=== PATIENT | female | born 1970 | race Caucasian/White ===

== ENCOUNTER 2024-10-10 12:27 | Inpatient (IN) | payer OTHER ==
[~2024-10-10] VITALS: Ht 157.5 cm; Wt 79.4 kg
[2024-10-10 12:59] LABS: BASOPHILS ABSOLUTE AUTO 0.06 K/mm3 (0.00-0.23); BASOPHILS PERCENT AUTO 1 % (0-2); EOSINOPHILS ABSOLUTE AUTO 0.24 K/mm3 (0.00-0.68); EOSINOPHILS PERCENT AUTO 4 % (0-6); Hematocrit 40.8 % (33.0-51.0); Hemoglobin 14.4 g/dL (11.5-16.0); IMMATURE GRAN ABSOLUTE AUTO 0.02 K/mm3 (0.00-0.10); IMMATURE GRAN PERCENT AUTO 0 % (0-1); LYMPHOCYTES ABSOLUTE AUTO 2.01 K/mm3 (0.84-5.20); LYMPHOCYTES PERCENT AUTO 30 % (21-46); MONOCYTES ABSOLUTE AUTO 0.52 K/mm3 (0.16-1.47); MONOCYTES PERCENT AUTO 8 % (4-13); Mean Corpuscular HGB 31.9 pg (26.0-34.0); Mean Corpuscular HGB Conc 35.3 g/dL (31.5-36.5); Mean Corpuscular Volume 91 fL (80-100); Mean Platelet Volume 9.1 fL (9.1-12.4); NEUTROPHILS ABSOLUTE AUTO 3.78 K/mm3 (1.96-9.15); NEUTROPHILS PERCENT AUTO 57 % (41-73); Platelet Count 198 K/mm3 (150-400); RDW Coefficient Variation 12.5 % (11.7-14.2); RDW Standard Deviation 41.1 fL (35.1-46.3); Red Blood Cell Count 4.51 M/mm3 (3.80-5.20); White Blood Cell Count 6.63 K/mm3 (4.00-11.30)
[2024-10-10 13:22] LABS: Albumin, Blood 3.9 g/dL (3.4-5.0); Albumin/Globulin Ratio 1.1 (0.8-1.8); Bilirubin, Total 0.4 mg/dL (0.1-1.0); Bun/Creatinine Ratio 15.4 (12.0-20.0); Calcium, Blood 8.8 mg/dL (8.5-10.1); Creatinine, Blood 0.91 mg/dL (0.40-1.00); Globulin, Blood 3.5 g/dL (2.2-4.0); Potassium, Blood 3.6 mmol/L (3.5-5.5); Total Protein, Blood 7.4 g/dL (6.4-8.2)
[2024-10-10] MEDS ORDERED: Aspirin 325 MG Tab PO ONE (15:15)
[2024-10-10 15:36] LABS: Anti-Xa UFH, PHA Monitoring <0.10 IU/mL; International Normalized Ratio 0.94; Prothrombin Time Results 10.1 Sec (9.7-11.5)
[2024-10-10] MEDS ORDERED: Nitroglycerin 0.4 MG SUBL SL PRN (15:50)
[2024-10-10] MEDS ORDERED: Dose Adjust by Pharmacy XX STA (15:55)
[2024-10-10] MEDS ORDERED: Heparin Sodium,Porcine/0.5 NS 500 ML IV SCH (16:00)
[2024-10-10] MEDS ORDERED: Heparin Sodium 5000 Units/ML 1ML MDV IV ONE (16:00)
[2024-10-10] MEDS ORDERED: Atorvastatin 40 MG Tab PO SCH (17:00)
[2024-10-10 17:50] VITALS: BP 135/82
--- NOTE | 2024-10-10 18:45 | NUR ---
EOS/ADMISSION: PATIENT IS A PLEASANT ALERT AND OIRENTED X 4 PATIENT WITH A ADMISSION DIAGNOSIS OF NSTEMI. SHE IS ENDORSING AN IMPROVED LEVEL OF CHEST PAIN FROM 8 TO 4 AFTER ED ADMINISTRATION OF NITRO. NITRO IN PATIENT CUPBOARD. DR. MCGUIRE THE IRRIGATOR SPRINKLING SYSTEM ROUNDED AND PLAN FOR NPO 0000, FOR ANGIO IN THE AM. PATIENT IS CONSENTED FOR PROCEDURE AND BLOOD CONSENT, DAUGHTER AND PRESENT FOR DISCUSSION AND EDUCATION ABOUT PROCEDURE. STILL NEEDS ECHO. ADDED ORDERS FOR A1C, TSH CORONARY RISK PANEL, BY CARDIOLOGY. PATIENT DENIED EXERTION CHEST PAIN TO BE INCREASED, BUT REMAINS TO BE HAVING FREQUENT BELCHING ALL DAY TODAY. PATIENT EDUCATED OF PLAN AND EXPECTATIONS. HEPARIN Gtt INFUSING. AT TIME OF NOTE PATIENT HAD JUST MENTION CHEST PAIN OF NOW 6-7. DENIES NEED FOR NITRO. TROP AT 1857 OF 1273.
[2024-10-10 19:02] VITALS: BP 125/73
--- NOTE | 2024-10-10 19:03 | NUR ---
CHEST PAIN: PAIN INCREASED TO 7-8, NITRO X 1 GIVEN, VSS. NO TELE CHANGES. PLAN OF CARE CONTINUES
[2024-10-10 19:05] VITALS: BP 125/73
[2024-10-10 19:13] VITALS: BP 118/78
[2024-10-10 19:33] VITALS: BP 118/78
[2024-10-10 20:00] LABS: CHOL/HDL RATIO 1.9; Cholesterol 147 mg/dL (50-200); HDL Cholesterol 78 mg/dL (>39); LDL/HDL RATIO 0.7; Low Density Lipoprotein Chol 58 mg/dL (0-110); Triglycerides 54 mg/dL (30-160); Very Low Density Lipoprot Chol 10 mg/dL (6-32)
[2024-10-10 22:59] VITALS: BP 123/77
[2024-10-10] MEDS ORDERED: Clarify Drug Order XX ONE (23:50)
[2024-10-11] VITALS (13 sets, daily range): BP systolic 97–134; BP diastolic 67–825
[2024-10-11 04:58] LABS: BASOPHILS ABSOLUTE AUTO 0.05 K/mm3 (0.00-0.23); BASOPHILS PERCENT AUTO 1 % (0-2); EOSINOPHILS ABSOLUTE AUTO 0.27 K/mm3 (0.00-0.68); EOSINOPHILS PERCENT AUTO 4 % (0-6); Hematocrit 38.3 % (33.0-51.0); Hemoglobin 13.5 g/dL (11.5-16.0); IMMATURE GRAN ABSOLUTE AUTO 0.01 K/mm3 (0.00-0.10); IMMATURE GRAN PERCENT AUTO 0 % (0-1); LYMPHOCYTES ABSOLUTE AUTO 2.81 K/mm3 (0.84-5.20); LYMPHOCYTES PERCENT AUTO 43 % (21-46); MONOCYTES ABSOLUTE AUTO 0.52 K/mm3 (0.16-1.47); MONOCYTES PERCENT AUTO 8 % (4-13); Mean Corpuscular HGB 32.4 pg (26.0-34.0); Mean Corpuscular HGB Conc 35.2 g/dL (31.5-36.5); Mean Corpuscular Volume 92 fL (80-100); Mean Platelet Volume 9.2 fL (9.1-12.4); NEUTROPHILS ABSOLUTE AUTO 2.84 K/mm3 (1.96-9.15); NEUTROPHILS PERCENT AUTO 44 % (41-73); Platelet Count 178 K/mm3 (150-400); RDW Coefficient Variation 12.8 % (11.7-14.2); RDW Standard Deviation 42.5 fL (35.1-46.3); Red Blood Cell Count 4.17 M/mm3 (3.80-5.20)
--- NOTE | 2024-10-11 05:15 | NUR ---
SHIFT SUMMARY PT A&O X4, ABLE TO MAKE NEEDS KNOWN. VSS, AFEBRILE, SPO2 >95% RA, TELE SHOWS SR 60S-70S. SHE HAD REPORT OF CP AT BEGINNING OF SHIFT THAT WAS RELIEVED BY NITRO. SHE DENIED CP FOR THE REMAINDER OF THE SHIFT. HEPARIN INFUSING PER ORDERS. SHE IS A SBA. PT HAS BEEN NPO SINCE MIDNIGHT FOR ANGIO TODAY. PT IS NOW RESTING IN BED, BREATHING IS EVEN AND UNLABORED, CALL LIGHT IN REACH.
[2024-10-11 05:32] LABS: Bun/Creatinine Ratio 13.7 (12.0-20.0); Calcium, Blood 8.3 mg/dL (8.5-10.1); Creatinine, Blood 0.95 mg/dL (0.40-1.00); Potassium, Blood 3.7 mmol/L (3.5-5.5)
[2024-10-11] MEDS ORDERED: Clarify Drug Order XX ONE (05:40)
[2024-10-11] MEDS ORDERED: Aspirin 81 MG Chew PO SCH (09:00)
[2024-10-11] MEDS ORDERED: FentaNYL Citrate 50 MCG/ML 2 ML Injection ONE (10:00)
[2024-10-11] MEDS ORDERED: Midazolam HCl 1MG / ML 2ML Vial ONE (10:00)
[2024-10-11] MEDS ORDERED: Verapamil HCL 2.5 MG/ML 2ML Injection ONE (10:00)
[2024-10-11] MEDS ORDERED: NS 1,000 ML IV ONE ×2 (10:00→10:01)
[2024-10-11] MEDS ORDERED: Heparin Sodium 1000 Units/ML 10ML MDV ONE (10:01)
[2024-10-11] MEDS ORDERED: NS 250 ML IV ONE (10:01)
[2024-10-11] MEDS ORDERED: Nitroglycerin 2 MG/20 ML BTL ONE (10:01)
[2024-10-11] MEDS ORDERED: Losartan Potassium 25 MG Tab PO SCH (11:35)
[2024-10-11] MEDS ORDERED: Metoprolol Succinate 25 MG TABCR PO SCH (11:35)
[2024-10-11] MEDS ORDERED: Clopidogrel Bisulfate 75 MG Tab PO ONE (11:35)
[2024-10-11] MEDS ORDERED: Acetaminophen 325 MG TABLET PO PRN (13:25)
[2024-10-11] MEDS ORDERED: METOPROLOL SUCC25 MG PO (14:22)
[2024-10-11] MEDS ORDERED: LOSA25 PO (14:23)
[2024-10-11] MEDS ORDERED: CLOP75 PO (14:23)
[2024-10-11] MEDS ORDERED: ASPI81CH PO (14:24)
--- NOTE | 2024-10-11 14:51 | NUR ---
PT HAD ANGIOGRAM THIS MORNING PROCEDURE WENT WELL. VESSELS ARE CLEAR PER REPORT. PT TO FOLLOW UP IN 2 WEEKS WITH ENGINEERING MATHEMATICIAN, TO TAKE HEART MEDICATIONS PRESCRIBED. RIGHT ULNAR SITE FULLY RECOVERED, NO HEMATOMA OR BLEEDING NOTED. CLEAR DRESSING IN PLACE. VITALS HAS BEEN STABLE. NO CHEST PAINS REPORTED AFTER PROCEDURE. ALL NEW MEDICATIONS AND DISCHARGE INSTRUCTIONS DISCLOSED WITH THE PT. ACCOMPANIED UPON DISCHARGE, ALL BELONGINGS SENT WITH THE PT
[2024-10-12] MEDS ORDERED: Clopidogrel Bisulfate 75 MG Tab PO SCH (09:00)
== END 2024-10-11 14:46 | disposition home or self-care (01) | DRG 282 ==
LOC: ER 12:27 → ERHOLD 15:27 → PCU 15:27
PROVIDERS: Physician Assistant; Student in an Organized Health Care Education/Training Program; ADMIT Internal Medicine
PROC: B2111ZZ Fluoroscopy of Multiple Coronary Arteries using Low Osmolar Contrast (ICD-10-PCS; principal; 2024-10-11)
DX: I21.4 Non-ST elevation (NSTEMI) myocardial infarction (principal); I10 Essential (primary) hypertension; I25.10 Atherosclerotic heart disease of native coronary artery without angina pectoris; F32.A Depression, unspecified; Z78.0 Asymptomatic menopausal state
CPT/HCPCS: 36415; 71046; 76937; 80048; 80053; 80061; 83036; 83690; 84443; 84484; 85025; 85379; 85520; 85610; 93005; 93010; 93306; 93454; 99152; 99153; 99285-25; A9270; C1769; C1887; C1894; J1644; J2250; J3010; J7030; J7050; Q9967

== ENCOUNTER 2024-10-12 19:13 | Observation (INO) | payer OTHER ==
[~2024-10-12] VITALS: Ht 157.5 cm; Wt 79.8 kg
[~2024-10-12 19:13] MED LIST: ASPI81CH PO; CLOP75 PO; LOSA25 PO; METOPROLOL SUCC25 MG PO
[2024-10-12 20:03] LABS: BASOPHILS ABSOLUTE AUTO 0.06 K/mm3 (0.00-0.23); BASOPHILS PERCENT AUTO 1 % (0-2); EOSINOPHILS ABSOLUTE AUTO 0.38 K/mm3 (0.00-0.68); EOSINOPHILS PERCENT AUTO 6 % (0-6); Hematocrit 41.9 % (33.0-51.0); Hemoglobin 14.6 g/dL (11.5-16.0); IMMATURE GRAN ABSOLUTE AUTO 0.02 K/mm3 (0.00-0.10); IMMATURE GRAN PERCENT AUTO 0 % (0-1); LYMPHOCYTES ABSOLUTE AUTO 2.69 K/mm3 (0.84-5.20); LYMPHOCYTES PERCENT AUTO 41 % (21-46); MONOCYTES ABSOLUTE AUTO 0.51 K/mm3 (0.16-1.47); MONOCYTES PERCENT AUTO 8 % (4-13); Mean Corpuscular HGB 32.4 pg (26.0-34.0); Mean Corpuscular HGB Conc 34.8 g/dL (31.5-36.5); Mean Corpuscular Volume 93 fL (80-100); Mean Platelet Volume 9.1 fL (9.1-12.4); NEUTROPHILS PERCENT AUTO 44 % (41-73); Platelet Count 195 K/mm3 (150-400); RDW Coefficient Variation 12.5 % (11.7-14.2); RDW Standard Deviation 42.7 fL (35.1-46.3); Red Blood Cell Count 4.51 M/mm3 (3.80-5.20); White Blood Cell Count 6.56 K/mm3 (4.00-11.30)
[2024-10-12] MEDS ORDERED: Nitroglycerin 0.4 MG SUBL SL PRN ×2 (20:50→23:40)
[2024-10-12] MEDS ORDERED: Morphine Sulfate 4 MG/1 ML Injection IV ONE (22:05)
[2024-10-12] MEDS ORDERED: NS 1,000 ML IV SCH (23:40)
[2024-10-12] MEDS ORDERED: Ondansetron HCl 2 MG / ML 2ML Vial IV PRN (23:40)
[2024-10-12] MEDS ORDERED: FentaNYL Citrate 50 MCG/ML 2 ML Injection IV PRN (23:40)
[2024-10-12] MEDS ORDERED: Mag Hydrox/Al Hydrox/Simeth 18 ML,Lidocaine 2% Viscous Soln 9 ML,Atropine/Scopalam/Hyos... PO PRN (23:45)
[2024-10-12] MEDS ORDERED: Enoxaparin 40 MG/0.4 ML SYR SC SCH (23:56)
[2024-10-13] MEDS ORDERED: Pantoprazole Sodium 40 MG Injection IV SCH (00:01)
[2024-10-13] MEDS ORDERED: Colchicine 0.6 MG TAB PO ONE (01:00)
[2024-10-13 01:31] VITALS: BP 131/74
[2024-10-13 03:42] VITALS: BP 119/73
[2024-10-13 05:22] LABS: BASOPHILS ABSOLUTE AUTO 0.04 K/mm3 (0.00-0.23); BASOPHILS PERCENT AUTO 1 % (0-2); EOSINOPHILS PERCENT AUTO 6 % (0-6); Hemoglobin 13.2 g/dL (11.5-16.0); IMMATURE GRAN ABSOLUTE AUTO 0.02 K/mm3 (0.00-0.10); IMMATURE GRAN PERCENT AUTO 0 % (0-1); LYMPHOCYTES ABSOLUTE AUTO 2.69 K/mm3 (0.84-5.20); LYMPHOCYTES PERCENT AUTO 38 % (21-46); MONOCYTES ABSOLUTE AUTO 0.57 K/mm3 (0.16-1.47); MONOCYTES PERCENT AUTO 8 % (4-13); Mean Corpuscular HGB 31.8 pg (26.0-34.0); Mean Corpuscular HGB Conc 34.7 g/dL (31.5-36.5); Mean Corpuscular Volume 92 fL (80-100); Mean Platelet Volume 9.1 fL (9.1-12.4); NEUTROPHILS ABSOLUTE AUTO 3.38 K/mm3 (1.96-9.15); NEUTROPHILS PERCENT AUTO 48 % (41-73); Platelet Count 177 K/mm3 (150-400); RDW Coefficient Variation 12.5 % (11.7-14.2); RDW Standard Deviation 41.1 fL (35.1-46.3); Red Blood Cell Count 4.15 M/mm3 (3.80-5.20)
[2024-10-13 05:45] LABS: Albumin, Blood 3.4 g/dL (3.4-5.0); Albumin/Globulin Ratio 1.1 (0.8-1.8); Bilirubin, Total 0.5 mg/dL (0.1-1.0); Bun/Creatinine Ratio 14.1 (12.0-20.0); Calcium, Blood 8.4 mg/dL (8.5-10.1); Globulin, Blood 3.2 g/dL (2.2-4.0); Total Protein, Blood 6.6 g/dL (6.4-8.2)
[2024-10-13 07:45] VITALS: BP 126/72
--- NOTE | 2024-10-13 08:54 | NUR ---
ASSUMPTION OF CARE: PATIENT IS ALERT AND ORIENTED X 4, CARDIOLOGY IS NOW CONSULTED, DR. PEDERSON HAS ROUNDED, DENIES ACTIVE CHEST PAIN, NONE NOTED WITH AMBULATION THE RESTROOM. INFUSING NS. NO ACUTE CONCERNS NOT ALREADY ADDRESSED. PLAN OF CARE CONTINUES.
[2024-10-13] MEDS ORDERED: Aspirin 81 MG Chew PO SCH (09:00)
[2024-10-13] MEDS ORDERED: Metoprolol Succinate 25 MG TABCR PO SCH (09:00)
[2024-10-13] MEDS ORDERED: Clopidogrel Bisulfate 75 MG Tab PO SCH (09:00)
--- NOTE | 2024-10-13 18:31 | NUR ---
EOS: NO ACUTE CHANGES DR. SYED NOTE OUTLINES THE PLAN OF CARE WELL. ONE MORE NIGHT OF OBS. PATIENT HAS BEEN CHEST PAIN FREE ALERT AND ORIENTED X 4 NO ACUTE CONCERNS. ON RA >96%. VSS. FINISHED INFUSION OF NS. UPDATED ABOUT PLAN OF CARE. NO TELE OR CARDIAC EVENTS THROUGHT THE DAY. DID BRING SNACKS, AND MEAL TRAY WAS UPDATED FOR GLUTEN RESTRICTION. NO ACUTE CONCERNS FROM THIS RN. PLAN OF CARE CONTNIUES.
[2024-10-13 20:36] VITALS: BP 121/75
[2024-10-13] MEDS ORDERED: Colchicine 0.6 MG TAB PO SCH (21:00)
[2024-10-14 00:45] VITALS: BP 122/74
[2024-10-14 04:16] LABS: BASOPHILS ABSOLUTE AUTO 0.05 K/mm3 (0.00-0.23); BASOPHILS PERCENT AUTO 1 % (0-2); EOSINOPHILS ABSOLUTE AUTO 0.29 K/mm3 (0.00-0.68); EOSINOPHILS PERCENT AUTO 5 % (0-6); Hematocrit 38.7 % (33.0-51.0); Hemoglobin 13.3 g/dL (11.5-16.0); IMMATURE GRAN ABSOLUTE AUTO 0.01 K/mm3 (0.00-0.10); IMMATURE GRAN PERCENT AUTO 0 % (0-1); LYMPHOCYTES ABSOLUTE AUTO 2.28 K/mm3 (0.84-5.20); LYMPHOCYTES PERCENT AUTO 39 % (21-46); MONOCYTES ABSOLUTE AUTO 0.46 K/mm3 (0.16-1.47); MONOCYTES PERCENT AUTO 8 % (4-13); Mean Corpuscular HGB Conc 34.4 g/dL (31.5-36.5); Mean Corpuscular Volume 93 fL (80-100); Mean Platelet Volume 9.1 fL (9.1-12.4); NEUTROPHILS PERCENT AUTO 47 % (41-73); Platelet Count 183 K/mm3 (150-400); RDW Coefficient Variation 12.5 % (11.7-14.2); RDW Standard Deviation 43.2 fL (35.1-46.3); Red Blood Cell Count 4.15 M/mm3 (3.80-5.20); White Blood Cell Count 5.79 K/mm3 (4.00-11.30)
[2024-10-14 04:37] VITALS: BP 118/74
[2024-10-14 04:50] LABS: Bun/Creatinine Ratio 17.4 (12.0-20.0); Calcium, Blood 8.6 mg/dL (8.5-10.1); Creatinine, Blood 0.98 mg/dL (0.40-1.00); Potassium, Blood 3.8 mmol/L (3.5-5.5)
--- NOTE | 2024-10-14 06:44 | NUR ---
SHIFT SUMMARY: PT IS A&OX4 PLEASANT AND COOPERATIVE WITH CARE. VSS ON RA. SR 55'S-70'S. C/O 7/10 PAIN IN HER NECK, SHOULDERS, AND BACK, STATES IT FEELS LIKE TIGHT MUSCLES. MEDICATED WITH 25 MCG IV FENTANYL. UP INDEPENDENTLY AD EMILIANA IN ROOM/BR. TOLERATING A HEART HEALTHY DIET. UNMEASURED VOIDS. NO BM THIS SHIFT. BED IN LOWEST POSITION, CALL LIGHT WITHIN REACH. CALLS APPROPRIATELY AND IS ABLE TO ADVOCATE NEEDS EFFECTIVELY.
[2024-10-14 07:30] VITALS: BP 112/66
[2024-10-14 11:50] VITALS: BP 111/66
[2024-10-14] MEDS ORDERED: PANT40 PO (13:10)
--- NOTE | 2024-10-14 13:46 | NUR ---
DISCHARGE PATIENT DISCHARGED AT 1440. DISCHARGE EDUCATION PROVIDED. PATIENT LEFT UNIT VIA WHEELCHAIR TO PARKING LOT.
[2024-10-15 05:57] LABS: ANTI-NUCLEAR AB ANA,IGG ELISA None Detected (None Detected)
== END 2024-10-14 14:08 | disposition home or self-care (01) ==
LOC: ER 19:13 → PCU 19:14 → ERHOLD 19:14 → PCU 10-13 01:11
PROVIDERS: Internal Medicine; Internal Medicine Interventional Cardiology; Student in an Organized Health Care Education/Training Program; ADMIT Internal Medicine
DX: I25.118 Atherosclerotic heart disease of native coronary artery with other forms of angina pectoris (principal); I40.9 Acute myocarditis, unspecified; I21.4 Non-ST elevation (NSTEMI) myocardial infarction; F32.9 Major depressive disorder, single episode, unspecified; N95.9 Unspecified menopausal and perimenopausal disorder; Z79.82 Long term (current) use of aspirin; Z79.899 Other long term (current) drug therapy
CPT/HCPCS: 36415; 71046; 80048; 80053; 83690; 83880; 84484; 85025; 85651; 86038; 86141; 93005; 93010; 96374; 96375; 99285-25; A9270; G0378; J2270; J2470; J3010; J7030